=== PATIENT | male | born 1995 ===

== ENCOUNTER 2020-03-25 10:04 | Emergency (ER) | payer OTHER ==
[~2020-03-25] VITALS: Ht 170.2 cm; Wt 68.9 kg
--- NOTE | 2020-03-25 11:00 | NUR ---
PT STATES HE HAS COVID SX, COUGH, SOB. PT NOT IN RESP DISTRESS.
[2020-03-25 11:57] VITALS: BP 135/81
--- NOTE | 2020-03-25 11:57 | NUR ---
Patient/Caregiver given discharge instructions and they have confirmed that they understand the instructions. Patient ambulatory with steady gait.
== END 2020-03-25 11:59 | disposition home or self-care (01) ==
LOC: ED 10:20
DX: B34.9 Viral infection, unspecified (principal); J02.9 Acute pharyngitis, unspecified; R05 Cough; R07.89 Other chest pain; M79.10 Myalgia, unspecified site; R06.02 Shortness of breath; I51.7 Cardiomegaly
CPT/HCPCS: 36415; 87635; 93005; 99283; 99284